=== PATIENT | female | born 1955 | race Caucasian/White ===

== ENCOUNTER 2022-07-10 11:02 | Inpatient (IN) | payer MEDICARE, SELFPAY ==
[2022-07-10] VITALS (10 sets, daily range): BP systolic 99–146; BP diastolic 66–108; PULSE 76–81; RESP 16–18; TEMP 36.7–37.3; O2SAT 92–96; BMI 26.6; BMI 26.3
--- NOTE | 2022-07-10 11:14 | XR_ITS ---
FINAL REPORT CLINICAL HISTORY: fall FINDINGS: An AP view of the pelvis and a cross-table view of the left hip were obtained. There is no prior exam for comparison. There is an impacted subcapital left femoral neck fracture. There is no dislocation. 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 Soft tissues are within normal limits. IMPRESSION: Impacted subcapital left femoral neck fracture. Reviewed, Interpreted and Dictated by Araseli Lebron MD Transcribed by Alli Mathew Authenticated and . [facility]
--- NOTE | 2022-07-10 11:14 | XR_ITS ---
FINAL REPORT CLINICAL HISTORY: fall FINDINGS: A PA view of the chest and oblique views of the left ribs were obtained. There is no prior exam for comparison. The cardiac and mediastinal silhouettes are within normal limits. The lungs are underinflated but clear. There is no pneumothorax. Oblique views of the left ribs reveal irregularity of the anterolateral left 4th and 5th ribs. IMPRESSION: Irregularity of the anterolateral left 4th and 5th ribs. Nondisplaced fractures cannot be excluded. Reviewed, Interpreted and Dictated by Araseli Lebron MD Transcribed by Alli Mathew Authenticated and [facility]
--- NOTE | 2022-07-10 11:14 | XR_ITS ---
FINAL REPORT CLINICAL HISTORY: fall FINDINGS: Three views of the right knee were obtained. There is no acute fracture or dislocation. The joint spaces are intact. The soft tissues are unremarkable. IMPRESSION: No acute osseous abnormality. Reviewed, Interpreted and Dictated by Araseli Lebron MD Transcribed by Alli Mathew Authenticated and [facility]
--- NOTE | 2022-07-10 11:20 | PC.NURSE ---
pt transported to radiology via stretcher.
--- NOTE | 2022-07-10 11:22 | HMH.EDFALL ---
Discharge Plan Disposition Patient Disposition: Admitted As Inpatient Condition: Good Discharge ED Provider: Valentin Fernández HPI General Chief Complaint: Fall Stated Complaint: fall, R hip pain Time Seen by Provider: 07/10/22 11:22 Mode of Arrival: EMS Source of Information: Patient, EMS and Medical Record Limitations: No Limitations Description of Symptoms (Recalled from ER Triage Doc. by RN): pt states she was sleep walking this morning and fell on her L side, reports L rib pain and L hip pain as well as R knee pain, denies LOC, denies hitting her head History of Present Illness HPI Narrative: pt with episode of somnambulism and fell down 2 steps and has rib and hip pain denied loc or head or neck and no abd pain MD complaint: fall Onset (ago): hour(s) Fall from: down stairs (#) Fall witnessed: no Place fall occurred: home Loss of consciousness: none Prolonged down time: no Context: other (sleep-walking) Location of injury: chest Location of injury - extremities: Left: thigh Severity: moderate Associated symptoms (after fall): denies Related Data Home Medications Medication Instructions Recorded Confirmed bupropion HCl 300 mg 24 hr tablet, 30 mg PO DAILY mood 07/10/22 07/10/22 extended release citalopram 40 mg tablet 40 mg PO DAILY Depression 07/10/22 07/10/22 cyclobenzaprine 10 mg tablet 10 mg PO DAILY PRN Muscle spasms 07/10/22 07/10/22 furosemide 20 mg tablet 20 mg PO DAILY Fluid 07/10/22 07/10/22 gabapentin 600 mg tablet 1,200 mg PO TID Pain 07/10/22 07/10/22 hydrocodone 7.5 mg-acetaminophen 1 tab PO TID PRN Pain 07/10/22 07/10/22 325 mg tablet meloxicam 15 mg tablet 15 mg PO DAILY inflammation 07/10/22 07/10/22 pantoprazole 40 mg tablet,delayed 40 mg PO BID stomach 07/10/22 07/10/22 release prochlorperazine maleate 10 mg 10 mg PO TID PRN Nausea And 07/10/22 07/10/22 tablet Vomiting propranolol 60 mg capsule,24 60 mg PO DAILY High blood pressure 07/10/22 07/10/22 hr,extended release ropinirole 3 mg tablet 3 mg PO HS Restless legs 07/10/22 07/10/22 valacyclovir 500 mg tablet 500 mg PO DAILY Infection 07/10/22 07/10/22 Allergies Allergy/AdvReac Type Severity Reaction Status Date / Time latex [LATEX] Allergy Intermediate I-RASH Verified 07/10/22 11:16 [facility] Disclaimer: The information contained in this section may have been updated after the patient was seen, as this information can be updated by other users. Social History Smoking Status: Never smoker alcohol intake: never current occupational status: retired Travel in the last 8 weeks: None ROS Obtained: Yes All systems reviewed & no additional complaints except as documented Physical Exam General General appearance: alert Head Head exam: normocephalic Eye Eye exam: Present PERRL and EOMI ENT ENT exam: Present normal oropharynx Neck Neck exam: Present full ROM and trachea midline; Absent tenderness Chest Chest inspection: Present tenderness and other (no sq air ) Respiratory Respiratory exam: Present other (dec bs bilat ); Absent respiratory distress Cardiovascular Cardiovascular exam: Present regular rate, systolic murmur and +S4 Abdominal Exam Abdominal exam: Present soft Extremities Exam Extremities exam: Absent calf tenderness Expanded Lower Extremity Exam Left: Hip/Pelvis exam: Present pelvis stable, pain on hip/pelvis palpation and hip pain on leg movement Neurovascular/Tendon exam: Absent pulse deficit Neurological Exam Neurological exam: Present alert, oriented X3 and CN II-XII intact; Absent motor sensory deficit Psychiatric Psychiatric exam: Present normal affect Skin Skin exam: Absent rash Medical Decision Making Medical Records Medical records reviewed: Yes I reviewed the patient's medical records. [place] Inquiry Pt receiving controlled substance: No Vital Signs: 07/10/22 11:02 07/10/22 12:00 07/10/22 12:30 Temperature 98.3 F Temperature Source Oral Pulse Rate
[2022-07-10 11:26] LABS: Basophils % 0.2 % (0.1-2.0); Eosinophils # 0.1 K/mm3 (0.0-0.4); Eosinophils % 1.3 % (0.1-12.0); Hematocrit 34.9 % (37.0-47.0); Hemoglobin 11.4 g/dL (12.2-16.2); Lymphocytes # 1.2 K/mm3 (0.7-4.5); Lymphocytes % 13.8 % (10-50); Mean Corpuscular HGB Conc 32.8 g/dL (31.8-35.4); Mean Corpuscular Volume 88.5 fl (81-99); Monocytes # 0.7 K/mm3 (0.1-1.0); Monocytes % 7.6 % (1.7-9.3); Neutrophils # 6.8 K/mm3 (1.8-7.8); Neutrophils % 77.1 % (37.0-80.0); Platelet Count 365 K/mm3 (142-424); Red Blood Count 3.94 M/mm3 (4.20-5.40); White Blood Count 8.8 K/mm3 (4.8-10.8)
[2022-07-10 11:32] LABS: Alanine Aminotransferase 20 U/L (12-78); Albumin Level 3.5 g/dl (3.5-5.0); Alkaline Phosphatase 147 U/L (38-126); Anion Gap 9.6 mEq/L (5-15); Aspartate Amino Transferase 38 U/L (14-36); Bilirubin,Total 1.5 mg/dl (0.2-1.3); Blood Urea Nitrogen 16 mg/dl (7-17); Calcium 8.2 mg/dl (8.4-10.2); Carbon Dioxide 25 mmol/L (22.0-30.0); Chloride 100 mmol/L (98-107); Creatinine Clearance Estimated 64 mL/min (50-200); Estimated Glomerular Filt Rate 56 ml/min (>60); GFR (African American) 67 ML/MIN (>60); Globulin 3.4 g/dL (1.3-3.2); Glucose 99 mg/dl (74-100); Potassium 3.6 mmoL/L (3.5-5.1); Sodium 131 mmol/L (136-145); Total Protein,Serum 6.9 g/dl (6.3-8.2)
--- NOTE | 2022-07-10 11:40 | PC.NURSE ---
pt returned from radiology.
[2022-07-10 12:11] LABS: Coronavirus 19, PCR Not Detected (NotDetected); Influenza A, PCR Not Detected (NotDetected); Influenza B, PCR Not Detected (NotDetected)
--- NOTE | 2022-07-10 12:37 | PC.NURSE ---
contacted radiology to check on status of xray results, states are reading xrays now, notified QIAN JAEGER
--- NOTE | 2022-07-10 13:13 | PC.NURSE ---
PRELIMINARY READING OF XRAYS GIVEN TO QIAN JAEGER AT THIS TIME.
--- NOTE | 2022-07-10 13:21 | ECG_ITS ---
APPROVED REPORT Exam: Resting ECG HR:77 bpm ECG Measurements Heart Rate 77 AXES TX 167 P -6 QRSd 100 QRS -5 QT 391 T -18 QTc 423 Conclusion SINUS RHYTHM WITH OCCASIONAL SUPRAVENTRICULAR PREMATURE COMPLEXES NONSPECIFIC T-WAVE ABNORMALITY BORDERLINE ECG UNCONFIRMED REPORT Electronically signed by : Hero Noble MD 07/11/2022 19:12:48
--- NOTE | 2022-07-10 13:52 | PC.NURSE ---
QIAN JAEGER SPEAKING WITH DR WILLS FOR ADMISSION
--- NOTE | 2022-07-10 13:56 | PC.NURSE ---
Case management called for admission
--- NOTE | 2022-07-10 14:21 | HMH.PHAINT1 ---
Pharmacy Intervention Comments: Home medication list verified via external fill history. -Mary Forrester, PharmD Candidate 2022
--- NOTE | 2022-07-10 14:37 | PC.NURSE ---
CALLED REPORT TO FELIPE GOYAL RN.
--- NOTE | 2022-07-10 16:11 | EXP.ORTH.CON ---
Documented by User: DAVIS Taylor 07/10/22 16:20 History of Present Illness *Admission Date: 07/10/22 *Reason for visit:: Left hip fracture *History of present illness: Amanda is a 66 year old female patient who is admitted to the acute inpatient service following a mechanical fall at home. She reports that around 4:00 AM this morning, she was sleepwalking and fell down the stairs, causing her to injure her left hip. She reports that she was unable to get up and ambulate so her sister called EMS and she was brought to the [facility] emergency department. Subsequent evaluation with x-ray demonstrates a left subcapital femur fracture. This afternoon the patient is lying comfortably in bed. She reports left hip pain as to be expected but states that it is well controlled with as needed pain medication and rest. No history of any distal tingling/numbness. At baseline she lives in her own home with her daughter in [place]; she is in [place] visiting her sister. She states that she most often ambulates with the use of a cane, but sometimes uses a walker for balance. Her past medical history is significant for chronic pain. She states that she has never been a smoker and is not diabetic; she denies any cardiac or pulmonary problems. She is not on any blood thinners. She denies any other symptoms or concerns at this time. [facility] Disclaimer: The information contained in this section may have been updated after the patient was seen, as this information can be updated by other users. Medical History (Updated 07/11/22 @ 00:32 by Angelito Rangel MD) Arthritis Chronic GERD Depression Surgical History History of gastric bypass Hx of neck surgery Previous back surgery Family History (Updated 07/10/22 @ 16:48 by Laverne Zhang RN) Other Family history of cancer Social History (Updated 07/10/22 @ 16:51 by Laverne Zhang RN) Smoking Status: Never smoker alcohol intake: never current occupational status: retired Travel in the last 8 weeks: None Meds Home Medications and Allergies Home Medications Medication Instructions Recorded Confirmed Type bupropion HCl 300 mg 24 hr tablet, 300 mg PO DAILY mood 07/10/22 07/11/22 History extended release citalopram 40 mg tablet 40 mg PO DAILY Depression 07/10/22 07/10/22 History cyclobenzaprine 10 mg tablet 10 mg PO DAILY PRN Muscle spasms 07/10/22 07/10/22 History furosemide 20 mg tablet 20 mg PO DAILY Fluid 07/10/22 07/10/22 History gabapentin 600 mg tablet 1,200 mg PO TID Pain 07/10/22 07/10/22 History hydrocodone 7.5 mg-acetaminophen 1 tab PO TID PRN Pain 07/10/22 07/10/22 History 325 mg tablet meloxicam 15 mg tablet 15 mg PO DAILY inflammation 07/10/22 07/10/22 History pantoprazole 40 mg tablet,delayed 40 mg PO BID stomach 07/10/22 07/10/22 History release prochlorperazine maleate 10 mg 10 mg PO TID PRN Nausea And 07/10/22 07/10/22 History tablet Vomiting propranolol 60 mg capsule,24 60 mg PO DAILY High blood pressure 07/10/22 07/10/22 History hr,extended release ropinirole 3 mg tablet 3 mg PO HS Restless legs 07/10/22 07/10/22 History valacyclovir 500 mg tablet 500 mg PO DAILY Infection 07/10/22 07/10/22 History New Prescriptions to Start Prescriptions: Allergies Allergy/AdvReac Type Severity Reaction Status Date / Time latex [LATEX] Allergy Intermediate I-RASH Verified 07/10/22 11:16 Ortho Exam (Inpt) Vital signs and Labs for Last 24 Hours: Temp Pulse Resp BP Pulse Ox 98.3 F 80 18 146/108 H 93 L 07/10/22 15:29 07/10/22 14:38 07/10/22 15:29 07/10/22 15:29 07/10/22 15:29 Laboratory Results - last 24 hr 07/10/22 11:12: WBC 8.8, RBC 3.94 L, Hgb 11.4 L, Hct 34.9 L, MCV 88.5, MCH 29.0, MCHC 32.8, RDW 17.0, Plt Count 365, MPV 8.0, Neut % (Auto) 77.1, Lymph % (Auto) 13.8, [place] % (Auto) 7.6, Eos % (Auto) 1.3, Baso % (Auto) 0.2, Neut # (Auto) 6.8, Lymph #
--- NOTE | 2022-07-10 16:20 | CT_ITS ---
PROCEDURE INFORMATION: Exam: CT Left Lower Extremity Without Contrast, Hip Exam date and time: 07/10/2022 5:24 PM Age: 66 years old Clinical indication: Injury or trauma; Fall; Blunt trauma; Hip; Left; Additional info: Left hip fracture TECHNIQUE: Imaging protocol: CT of the Left lower extremity without contrast was performed. Exam focused on the hip. 3D rendering (Not supervised by radiologist): MIP and/or 3D reconstructed images were created by the technologist. Radiation optimization: All CT scans at this facility use at least one of these dose optimization techniques: automated exposure control; mA and/or kV adjustment per patient size (includes targeted exams where dose is matched to clinical indication); or iterative reconstruction. COMPARISON: CR XR HIP LT 2-3V W/PELVIS 07/10/2022 11:15 AM FINDINGS: Bones/joints: Fusion hardware noted in the sacrum. There is redemonstration of acute, impacted subcapital femoral fracture. Soft tissues: Muscles are normal in bulk. IMPRESSION: Acute, impacted subcapital femoral fracture
--- NOTE | 2022-07-10 19:13 | EXP.HP ---
History of Present Illness *Admission Date: 07/10/22 *Reason for visit:: Left hip fracture/left hip pain *History of present illness: Ms. Echevarria is a pleasant 66 year old female patient who is admitted to the acute inpatient service following a mechanical fall at home. She reports that around 4:00 AM this morning, she was sleepwalking and fell down the stairs, causing her to injure her left hip. She reports that she was unable to get up and ambulate so her sister called EMS and she was brought to the [facility] emergency department. Subsequent evaluation with x-ray demonstrates a left subcapital femur fracture. Admitted for orthopedics consult and repair of her left hip fracture. After arriving to the floor, she is lying comfortably in bed with her legs propped up on a pillow giving her relief of her pain. this afternoon the patient is lying comfortably in bed. She reports left hip pain as to be expected but states that it is well controlled with as needed pain medication and rest. No history of any distal tingling/numbness. At baseline she lives in her own home with her daughter in [place]; she is in [place] visiting her sister. She states that she most often ambulates with the use of a cane, but sometimes uses a walker for balance. Her past medical history is significant for chronic pain. She states that she has never been a smoker and is not diabetic; she denies any cardiac or pulmonary problems. She is not on any blood thinners. She denies any other symptoms or concerns at this time. [facility] Disclaimer: The information contained in this section may have been updated after the patient was seen, as this information can be updated by other users. Medical History (Updated 07/11/22 @ 00:32 by Angelito Rangel MD) Arthritis Chronic GERD Depression Surgical History History of gastric bypass Hx of neck surgery Previous back surgery Family History (Updated 07/10/22 @ 16:48 by Laverne Zhang RN) Family history of cancer Social History (Updated 07/10/22 @ 16:51 by Laverne Zhang RN) Smoking Status: Never smoker alcohol intake: never current occupational status: retired Travel in the last 8 weeks: None Review of Systems Review of Systems Review of systems (narrative): 14 point review of systems performed, pertinent positives and negatives as per HPI Meds Home Medications and Allergies Home Medications Medication Instructions Recorded Confirmed Type bupropion HCl 300 mg 24 hr tablet, 30 mg PO DAILY mood 07/10/22 07/10/22 History extended release citalopram 40 mg tablet 40 mg PO DAILY Depression 07/10/22 07/10/22 History cyclobenzaprine 10 mg tablet 10 mg PO DAILY PRN Muscle spasms 07/10/22 07/10/22 History furosemide 20 mg tablet 20 mg PO DAILY Fluid 07/10/22 07/10/22 History gabapentin 600 mg tablet 1,200 mg PO TID Pain 07/10/22 07/10/22 History hydrocodone 7.5 mg-acetaminophen 1 tab PO TID PRN Pain 07/10/22 07/10/22 History 325 mg tablet meloxicam 15 mg tablet 15 mg PO DAILY inflammation 07/10/22 07/10/22 History pantoprazole 40 mg tablet,delayed 40 mg PO BID stomach 07/10/22 07/10/22 History release prochlorperazine maleate 10 mg 10 mg PO TID PRN Nausea And 07/10/22 07/10/22 History tablet Vomiting propranolol 60 mg capsule,24 60 mg PO DAILY High blood pressure 07/10/22 07/10/22 History hr,extended release ropinirole 3 mg tablet 3 mg PO HS Restless legs 07/10/22 07/10/22 History valacyclovir 500 mg tablet 500 mg PO DAILY Infection 07/10/22 07/10/22 History New Prescriptions to Start Prescriptions: Allergies Allergy/AdvReac Type Severity Reaction Status Date / Time latex [LATEX] Allergy Intermediate I-RASH Verified 07/10/22 11:16 Exam Data for Last 24 hours Vital signs and Labs for Last 24 Hours: Temp Pulse Resp BP Pulse Ox 99.1 F 81 18 107/66 L 92 L 07/10/22 19:33 07/10/22 19:33
[2022-07-11] VITALS (16 sets, daily range): BP systolic 107–134; BP diastolic 50–85; PULSE 71–102; RESP 12–20; TEMP 36.3–43; O2SAT 92–100; BMI 28.6
[2022-07-11 06:44] LABS: Alanine Aminotransferase 17 U/L (12-78); Albumin Level 3.2 g/dl (3.5-5.0); Albumin/Globulin Ratio 1.1 (1.1-1.8); Alkaline Phosphatase 137 U/L (38-126); Anion Gap 8.4 mEq/L (5-15); Aspartate Amino Transferase 30 U/L (14-36); Bilirubin,Total 0.9 mg/dl (0.2-1.3); Blood Urea Nitrogen 12 mg/dl (7-17); Carbon Dioxide 25 mmol/L (22.0-30.0); Chloride 103 mmol/L (98-107); Creatinine Clearance Estimated 69 mL/min (50-200); Estimated Glomerular Filt Rate 63 ml/min (>60); GFR (African American) 76 ML/MIN (>60); Globulin 2.9 g/dL (1.3-3.2); Glucose 92 mg/dl (74-100); Magnesium 1.9 mg/dl (1.6-2.3); Potassium 3.4 mmoL/L (3.5-5.1); Sodium 133 mmol/L (136-145); Total Protein,Serum 6.1 g/dl (6.3-8.2)
[2022-07-11 06:53] LABS: Basophils % 0.6 % (0.1-2.0); Eosinophils # 0.5 K/mm3 (0.0-0.4); Eosinophils % 7.5 % (0.1-12.0); Hematocrit 33.8 % (37.0-47.0); Hemoglobin 11.1 g/dL (12.2-16.2); Lymphocytes # 1.8 K/mm3 (0.7-4.5); Lymphocytes % 27.4 % (10-50); Mean Corpuscular HGB Conc 32.8 g/dL (31.8-35.4); Mean Corpuscular Hemoglobin 28.8 pg (27.0-31.2); Mean Platelet Volume 7.8 fl (7.4-10.4); Monocytes # 0.6 K/mm3 (0.1-1.0); Neutrophils # 3.7 K/mm3 (1.8-7.8); Neutrophils % 55.5 % (37.0-80.0); Platelet Count 338 K/mm3 (142-424); Red Blood Count 3.85 M/mm3 (4.20-5.40); Red Cell Distribution Width 17.1 % (11.5-17.5); White Blood Count 6.6 K/mm3 (4.8-10.8)
--- NOTE | 2022-07-11 07:19 | PC.NURSE ---
Pt has c/o pain in left leg 3x t/o shift. PRN [place] administered per AUG. Pt states favorable results. Call light within reach.
--- NOTE | 2022-07-11 09:59 | EXP.ORTH.PN ---
Subjective *Date: 07/11/22 *Time: 08:40 Interval history: Amanda is a 66-year-old female patient admitted to the acute inpatient service with left subcapital femur fracture. This morning the patient is lying comfortably in bed. She reports left hip pain as to be expected but states it is well controlled with as needed pain medication and rest. She reports that she was able to sleep last night. She has not had anything to eat or drink since yesterday evening in anticipation of surgery today. She denies any other symptoms or concerns at this time. Ortho Exam (Inpt) Vital signs and Labs for Last 24 Hours: Temp Pulse Resp BP Pulse Ox 98.6 F 78 18 130/85 96 07/11/22 07:39 07/11/22 04:00 07/11/22 07:39 07/11/22 07:39 07/11/22 07:39 Laboratory Results - last 24 hr 07/10/22 11:12: WBC 8.8, RBC 3.94 L, Hgb 11.4 L, Hct 34.9 L, MCV 88.5, MCH 29.0, MCHC 32.8, RDW 17.0, Plt Count 365, MPV 8.0, Neut % (Auto) 77.1, Lymph % (Auto) 13.8, [place] % (Auto) 7.6, Eos % (Auto) 1.3, Baso % (Auto) 0.2, Neut # (Auto) 6.8, Lymph # (Auto) 1.2, [place] # (Auto) 0.7, Eos # (Auto) 0.1, Baso # (Auto) 0.0 07/10/22 11:12: Sodium 131 L, Potassium 3.6, Chloride 100, Carbon Dioxide 25, Anion Gap 9.6, BUN 16, Creatinine 1.00, Estimated Creat Clear 64, Estimated GFR 56 L, Est GFR ( Amer) 67, Glucose 99, Calcium 8.2 L, Total Bilirubin 1.5 H, AST 38 H, ALT 20, Alkaline Phosphatase 147 H, Total Protein 6.9, Albumin 3.5, Globulin 3.4 H, Albumin/Globulin Ratio 1.0 L 07/10/22 12:02: SARS-CoV-2 (PCR) Not detected, Influenza A Untype (PCR) Not detected, Influenza Type B (PCR) Not detected 07/11/22 06:22: WBC 6.6, RBC 3.85 L, Hgb 11.1 L, Hct 33.8 L, MCV 88.0, MCH 28.8, MCHC 32.8, RDW 17.1, Plt Count 338, MPV 7.8, Neut % (Auto) 55.5, Lymph % (Auto) 27.4, [place] % (Auto) 9.0, Eos % (Auto) 7.5, Baso % (Auto) 0.6, Neut # (Auto) 3.7, Lymph # (Auto) 1.8, [place] # (Auto) 0.6, Eos # (Auto) 0.5 H, Baso # (Auto) 0.0 07/11/22 06:22: Sodium 133 L, Potassium 3.4 L, Chloride 103, Carbon Dioxide 25, Anion Gap 8.4, BUN 12, Creatinine 0.90, Estimated Creat Clear 69, Estimated GFR 63, Est GFR ( Amer) 76, Glucose 92, Calcium 8.0 L, Magnesium 1.9, Total Bilirubin 0.9, AST 30, ALT 17, Alkaline Phosphatase 137 H, Total Protein 6.1 L, Albumin 3.2 L, Globulin 2.9, Albumin/Globulin Ratio 1.1 Temp Pulse Resp BP Pulse Ox 98.3 F 80 18 146/108 H 93 L 07/10/22 15:29 07/10/22 14:38 07/10/22 15:29 07/10/22 15:29 07/10/22 15:29 Laboratory Results - last 24 hr 07/10/22 11:12: WBC 8.8, RBC 3.94 L, Hgb 11.4 L, Hct 34.9 L, MCV 88.5, MCH 29.0, MCHC 32.8, RDW 17.0, Plt Count 365, MPV 8.0, Neut % (Auto) 77.1, Lymph % (Auto) 13.8, [place] % (Auto) 7.6, Eos % (Auto) 1.3, Baso % (Auto) 0.2, Neut # (Auto) 6.8, Lymph # (Auto) 1.2, [place] # (Auto) 0.7, Eos # (Auto) 0.1, Baso # (Auto) 0.0 07/10/22 11:12: Sodium 131 L, Potassium 3.6, Chloride 100, Carbon Dioxide 25, Anion Gap 9.6, BUN 16, Creatinine 1.00, Estimated Creat Clear 64, Estimated GFR 56 L, Est GFR ( Amer) 67, Glucose 99, Calcium 8.2 L, Total Bilirubin 1.5 H, AST 38 H, ALT 20, Alkaline Phosphatase 147 H, Total Protein 6.9, Albumin 3.5, Globulin 3.4 H, Albumin/Globulin Ratio 1.0 L 07/10/22 12:02: SARS-CoV-2 (PCR) Not detected, Influenza A Untype (PCR) Not detected, Influenza Type B (PCR) Not detected I & O for Labs for Last 24 Hours: Intake & Output 07/08/22 07/09/22 07/10/22 07/11/22 23:59 23:59 23:59 23:59 Intake Total 60 / 60 0 / 0 Output Total 1600 / 2000 700 / 700 Balance -1540 / -1940 -700 / -700 Weight 158 lb 3 oz 172 lb 2 oz Intake & Output 07/07/22 07/08/22 07/09/22 07/10/22 23:59 23:59 23:59 23:59 Output Total 1000 / 1000 Balance -1000 / -1000 Weight 158 lb 3 oz Constitutional: Present no acute distress and cooperative Head: Present normocephalic and atraumatic Eyes: Present as per HPI ENT: Present normal exam Neck: Present normal inspection, full ROM and trachea midline; Absent lymphadenopathy R
--- NOTE | 2022-07-11 10:16 | SW/DCPLANNER ---
Addendum entered by [facility] 07/13/22 09:15: The plan for this patient is to discharge home today w/ [facility]. Addendum entered by [facility] 07/12/22 12:56: [facility] stated that services for this patient will start Sunday07/14/22. Addendum entered by [facility] 07/12/22 12:48: [facility] can not start services till late next week. I have faxed patient information [facility]. Addendum entered by [facility] 07/12/22 10:20: PT/OT evaluated patient this AM and stated that patient could go SNF level of care or home with assistance and home health. Patient is adamant to return home to her sister's house in [place] w/ home health services. Patient may discharge home tomorrow. I will fax patient information/order to [facility] today to set up services for discharge. Original Note: This patient per Ortho will have surgery today for left hip fracture. Patient does reside in [place] but is here visiting her sister in [place]. Patient stated that she has been to SNF facility in the past but is NOT interested in returning SNF once stable for discharge from [facility]. Patient stated that she would prefer to return to her sister's house with home health services. I will follow up with patient once surgery and therapy evaluation is completed. Discharge date is unknown at this time.
--- NOTE | 2022-07-11 13:46 | EXP.PN ---
Subjective *Date: 07/11/22 *Time: 13:46 Interval history: Date of service July 11, 2022. I am accompanied by several members of the multidisciplinary team for evaluation of the patient. She reports no acute events since admission and describes adequate pain control. Nursing staff report that she remains afebrile with stable vital signs and saturating appropriately on room air. Her morning labs have been reviewed and discussed including a low magnesium and potassium. Plans are for operative correction per orthopedics. Exam Data for Last 24 hours Vital signs and Labs for Last 24 Hours: Temp Pulse Resp BP Pulse Ox 98.6 F 78 18 130/85 96 07/11/22 07:39 07/11/22 04:00 07/11/22 07:39 07/11/22 07:39 07/11/22 07:39 Laboratory Results - last 24 hr 07/11/22 06:22: WBC 6.6, RBC 3.85 L, Hgb 11.1 L, Hct 33.8 L, MCV 88.0, MCH 28.8, MCHC 32.8, RDW 17.1, Plt Count 338, MPV 7.8, Neut % (Auto) 55.5, Lymph % (Auto) 27.4, [place] % (Auto) 9.0, Eos % (Auto) 7.5, Baso % (Auto) 0.6, Neut # (Auto) 3.7, Lymph # (Auto) 1.8, [place] # (Auto) 0.6, Eos # (Auto) 0.5 H, Baso # (Auto) 0.0 07/11/22 06:22: Sodium 133 L, Potassium 3.4 L, Chloride 103, Carbon Dioxide 25, Anion Gap 8.4, BUN 12, Creatinine 0.90, Estimated Creat Clear 69, Estimated GFR 63, Est GFR ( Amer) 76, Glucose 92, Calcium 8.0 L, Magnesium 1.9, Total Bilirubin 0.9, AST 30, ALT 17, Alkaline Phosphatase 137 H, Total Protein 6.1 L, Albumin 3.2 L, Globulin 2.9, Albumin/Globulin Ratio 1.1 I & O for Last 24 hours: Intake & Output 07/08/22 07/09/22 07/10/22 07/11/22 23:59 23:59 23:59 23:59 Intake Total 60 / 60 1000 / 1000 Output Total 1600 / 2000 700 / 700 Balance -1540 / -1940 300 / 300 Weight 71.753 kg 78.075 kg Constitutional Constitutional: no acute distress *Routine HEENT Exam Head: Present normocephalic Eye: Present EOMI and PERRL ENT: Present mucous membranes moist *Routine Neck Exam Neck: Present supple; Absent lymphadenopathy *Routine Respiratory Exam Respiratory: Present CTA bilaterally *Routine Cardiovascular Exam Cardiovascular: Present RRR *Routine Abdominal Exam Abdominal: Present soft and normoactive bowel sounds; Absent tenderness *Routine Extremities Exam Extremities: Absent cyanosis, clubbing or edema Comments: Left lower extremity with tenderness to the outer hip area, range of motion not attempted. *Routine Skin Exam Skin: Present warm; Absent rash *Routine Neurological Exam Neurological: Present alert and oriented X3 Assessment and Plan *Assessment and plan (1) Closed left hip fracture: Status: Acute Category: Medical Code(s): S72.002A - Fracture of unspecified part of neck of left femur, initial encounter for closed fracture (2) Chronic pain: Status: Acute Category: Medical Code(s): G89.29 - Other chronic pain (3) Depression: Status: Acute Category: Medical Code(s): F32.A - Depression, unspecified (4) Chronic GERD: Status: Acute Category: Medical Code(s): K21.9 - Gastro-esophageal reflux disease without esophagitis Plan 66-year-old female from [place] who is in [place] visiting her sister who fell and broke her left hip. Orthopedics consulted for operative management. Problems addressed as follows: Left hip fracture Left hip pain Orthopedic consult noted Imaging of left hip noted Parenterally administered controlled substance for comfort care VTE prophylaxis N.p.o. for anticipated surgical procedure Chronic pain with neuropathy Routine nursing interaction Gabapentin therapy Opioid therapy Holding NSAID therapy Trending electrolytes and creatinine GERD Appropriate positioning during and after meals Aspiration precautions PPI therapy Depression Routine nursing interaction SSRI therapy Wellbutrin therapy VTE prophylaxis: SCD's Code Status: DNR/DNI The patient is hospitalized day 1 with above diagnoses complicated by her chronic op
--- NOTE | 2022-07-11 17:16 | PC.NURSE ---
PT IS RESTING IN BED. ALERT AND ORIENTED X4. MEDICATED PER MAR FOR DISCOMFORT. ASSISTED WITH REPOSITIONING IN BED. LUNG SOUNDS CLEAR. ABDOMEN SOFT/NON TENDER WITH ACTIVE BOWEL SOUNDS. WILL CONTINUE TO MONITOR.
--- NOTE | 2022-07-11 21:16 | XR_ITS ---
PROCEDURE INFORMATION: Exam: XR Left Hip Exam date and time: 07/11/2022 9:33 PM Age: 66 years old Clinical indication: Screening exam; Post op; Prior surgery; Surgery date: Post-operative (0-2 days); Additional info: Postop in pacu, ap / cross table TECHNIQUE: Imaging protocol: Radiologic exam of the Left hip. Views: 2 or 3 views hip with pelvis when performed. COMPARISON: CT HIP LT WO CON 07/10/2022 5:24 PM FINDINGS: Bones/joints: Left hip prosthesis appears normally aligned. Evidence of prior vertebroplasty and orthopedic hardware noted in the lower lumbar spine. No acute fracture evident. Soft tissues: Soft tissue gas about the left hip compatible with recent surgery. IMPRESSION: Normal-appearing left hip prosthesis. No unexpected postoperative changes.
--- NOTE | 2022-07-11 21:18 | EXP.OP.NOTE ---
Date of procedure: 07/11/22 Pre-op Diagnosis:: left femoral neck fracture Post-op Diagnosis:: same Procedure performed:: 20613: left cemented femoral neck fracture Surgeon:: José Miguel Michele JR, MD Sole Leveler(s):: Yokasta Monahan PA-C SENIOR ADMINISTRATIVE ASSOCIATE:: Talha Lay Anesthesia: spinal Estimated blood loss (mL): 200 Clinical Note:: 66-year-old female sustained a left femoral neck fracture as a result of a ground-level fall. X-ray and CT scan demonstrated valgus impacted femoral neck fracture with subtle retroversion. I had a discussion with her regarding further management and after discussion of risk, benefits, alternatives, she wished to proceed with left cemented hip hemiarthroplasty. She was amenable with the plan. We discussed the risk and benefits of surgery. Risks included but were not limited to pain, bleeding, infection, damage to adjacent structures, need for further surgery, wound healing complications, loss of limb, . Patient expressed verbal consent and written consent was obtained for the above procedure. Operative findings:: I noted a crack in the calcar after trial reduction and as such I applied a cable. Size 2 stem, standard offset, +0 bipolar head, [employer] Operative note:: Patient was identified in preoperative holding. Operative site was marked in indelible ink. History, physical, consent were reviewed and updated. Patient was surrendered to the anesthesia team, taken to the operative suite. Anesthesia was induced. Patient was then placed in the lateral decubitus position on a well-padded operative table. All bony prominences were padded and an axillary roll was placed. The operative extremity was prepped and draped in the usual sterile fashion. The operative team donned sterile gowns and gloves and a timeout was called. All in attendance agreed regarding the patient's identity, procedure, operative site. Weight-based dose of antibiotics was given prior to incision. A skin maker was then used to ino all bony prominences. Skin incision was then carried out extending from the greater trochanter in a curvilinear fashion posteriorly across the buttocks. I incised the skin with a scalpel, then using a Bovie dissected through tissues. The fascia tono was incised utilizing Metzenbaum scissors. This was taken down to the bursa, which was removed utilizing a rongeur. Utilizing a periosteal elevator as well as the sponge, the fat was then freed from the short external rotators of the left hip after these were placed and stretched. The sciatic nerve was protected. Bovie was used to remove the short external rotators from the greater trochanter, which revealed the joint capsule. His were tagged for later repair. The capsule was cleared and incised utilizing a T-shape incision. A fracture hematoma was noted upon entering the joint capsule as well as the femoral neck fracture. A cork screw was then used to remove the fractured femoral head, which was given to the hydrographical technical officer which was sized on the back table. All bony remnants were then removed from the acetabulum and surrounding soft tissue with a rongeur. Acetabulum was then inspected and found to be clear. Attention was then turned to the proximal femur where a cutting tunnel was used to ino the femur for the femoral neck cut. A sagittal saw was then used to make the femoral cut. Box osteotome was then used to remove the bone from proximal femur. A femoral neck elevator was utilized. Next, attention was turned to broaching. Initially, a small broach was placed, first making efforts to lateralize the broach then the femoral canal. Next, the trial components were inserted consisting of the above-mentioned component sizes. The hip was taken through range of motion and tested to adduction, internal and external rotations as well as with a shuck and a posterior directed force on a flexed hip. It was noted that these size were stable through the range of motion. Next, the trial components were
--- NOTE | 2022-07-11 21:33 | EXP.ANES.CKL ---
[facility] Disclaimer: The information contained in this section may have been updated after the patient was seen, as this information can be updated by other users. Medical History (Updated 07/11/22 @ 00:32 by Angelito Rangel MD) Arthritis Chronic GERD Depression Surgical History History of gastric bypass Hx of neck surgery Previous back surgery Family History (Updated 07/10/22 @ 16:48 by Laverne Zhang RN) Other Family history of cancer Social History (Updated 07/10/22 @ 16:51 by Laverne Zhang RN) Smoking Status: Never smoker alcohol intake: never substance use type: denies use current occupational status: retired Travel in the last 8 weeks: None [facility] Anesthesia Checklist Patient Identification Patient Identification: Arm Band Structural Data Admitted From: Home Planned Operative Procedure/s: Left Hip Hemiarthroplasty Consent for Planned Operative Procedure(s) Verified: Yes Verified Documents: Surgical Consent and History and Physical NPO Status Verified Time NPO: 13:00 (clear liquids) Additional verifications Anesthesia Reactions: No Airway Assessment C-Spine Mobility Assessed: Yes TMJ Mobility Assessed: Yes Dentition: Edentulous Neurological Assessment Level of Consciousness: Awake and Alert Anesthesia Plan Anesthesia Risk discussed: Yes Anesthesia Plan: Verified ASA Class: II Anesthesia Type: General
--- NOTE | 2022-07-11 21:34 | EXP.ANES.I ---
[facility] Anesthesia Record Part I Anesthesia Record I Intake, IV Amount: 1,400 Estimated blood loss (mL): 100 Urine output (mL): 500 Blood Pressure: 134/67 SaO2: 92 Pulse Rate: 95 Respiratory Rate: 16 Temperature: 97.7 F Patient is:: Drowsy and Stable Stable to PACU at:: 21:30
--- NOTE | 2022-07-11 22:04 | SUR.PHASEI ---
Report called to Sharon Singletary RN @ this time.
--- NOTE | 2022-07-11 22:10 | PC.NURSE ---
PT ARRIVED TO FLOOR FROM SURGERY AT THIS TIME
[2022-07-12] VITALS (14 sets, daily range): BP systolic 99–133; BP diastolic 62–78; PULSE 66–102; RESP 14–18; TEMP 36.5–37.2; O2SAT 90–99; BMI 28.7; BMI 28.6
--- NOTE | 2022-07-12 04:07 | PC.NURSE ---
Pt has been alert to person majority of time since arriving back to floor. Able to be reoriented easily and remains pleasant but becomes confused again quickly. Pt has c/o pain rating 10/10 to left hip. PRN pain medication administered. DSG to left hip CDI, abductor pillow in place. Bed alarm on for pt safety. Call light within reach.
[2022-07-12 06:07] LABS: Basophils % 0.2 % (0.1-2.0); Eosinophils % 0.3 % (0.1-12.0); Hematocrit 31.6 % (37.0-47.0); Hemoglobin 10.4 g/dL (12.2-16.2); Lymphocytes # 0.8 K/mm3 (0.7-4.5); Lymphocytes % 12.5 % (10-50); Mean Corpuscular HGB Conc 32.9 g/dL (31.8-35.4); Mean Corpuscular Hemoglobin 29.6 pg (27.0-31.2); Mean Corpuscular Volume 89.9 fl (81-99); Mean Platelet Volume 8.4 fl (7.4-10.4); Monocytes # 0.4 K/mm3 (0.1-1.0); Neutrophils # 4.9 K/mm3 (1.8-7.8); Platelet Count 349 K/mm3 (142-424); Red Blood Count 3.51 M/mm3 (4.20-5.40)
[2022-07-12 06:15] LABS: Chloride 110 mmol/L (98-107); Potassium 5.1 mmoL/L (3.5-5.1); Sodium 136 mmol/L (136-145)
[2022-07-12 06:18] LABS: Anion Gap 9.1 mEq/L (5-15); Blood Urea Nitrogen 10 mg/dl (7-17); Calcium 7.7 mg/dl (8.4-10.2); Carbon Dioxide 22 mmol/L (22.0-30.0); Creatinine Clearance Estimated 69 mL/min (50-200); Estimated Glomerular Filt Rate 72 ml/min (>60); GFR (African American) 87 ML/MIN (>60); Glucose 134 mg/dl (74-100); Magnesium 2.4 mg/dl (1.6-2.3)
--- NOTE | 2022-07-12 07:12 | EXP.ANES.II ---
[facility] Anesthesia Record Part II Anesthesia Record Part II Discharge Time: 22:04 Destination: Second Floor PACU nurse assessment reviewed?: Yes Patient Condition:: Good Anesthesia Complications:: None Swallowing reflex intact?: Yes Cyanosis?: No Blood Pressure: 113/69 Pulse Rate: 90 Temperature: 97.7 F Mental Status: Alert & Oriented Pain level:: 5 Nausea and/or vomitting:: None Intake, IV Amount: 0
--- NOTE | 2022-07-12 10:07 | HMH.PTEV ---
Physical Therapy Evaluation Rehab PT IP Evaluation Start: 07/11/22 21:15 Freq: ONCE Status: Active Protocol: Document 07/12/22 10:01 PHOPRAFUL (Rec: 07/12/22 10:07 PHORNE [id number]) Subjective/History History History 66 [facility]owf [facility] fall down steps while sleepwalking and suffering L hip fx. Now S/ P L hip MARSHALL with post hip precautions and WBAT. She reports she lives with daughter who works, 4 steps to enter the home, she is generally independent with all mobility prior to adm. Subjective Subjective Currently she has no c/o other than expected post-op soreness. Rehab PT IP Eval Objective Appearance Patient Behavior Appropriate Patient Orientation Person,Place,Time Difficulty following instructions none Speech Pattern Clear Ambulation Patient Able to Ambulate Yes Ambulation Observation IP General Gait Pattern Observation Antalgic Gait Ambulation Distance (feet) 30 Ambulation Assistive Device Rolling Walker Ambulation Ability Contact Guard/Hand Hold Balance Ability to Arise Able, uses arms to help Sitting Balance Steady, safe Standing Balance Steady, wide stance Dynamic Sitting Balance Ability Good Dynamic Standing Balance Ability Fair Transfers Bed Transfer Ability Contact Guard/Hand Hold Chair Transfer Ability Contact Guard/Hand Hold Sit to Stand Bed Transfer Ability Minimal x 1 (25% assist) Sit to Stand Chair Transfer Ability Minimal x 1 (25% assist) ROM All Extremities PT ROM Status WFL MMT All Extremities PT MMT WFL Abnormal MMT Grade L LE grossly 3/5 Rehab PT IP prob,goals,plan Problems Date of Evaluation: 07/12/22 PT IP Problems Bed Mobility,Transfers,Gait Rehab Potential Rehab Potential Good Equipment Needs Assistive Devices Rolling / Wheeled Walker Plan PT Intervention Plan Bed Mobility,Transfers,Gait, Therapeutic Exercise PT Plan Frequency BID Duration LOS Discharge Goals Bed Transfer Ability Supervision/Stand by Sit to Stand Chair Transfer Ability Contact Guard/Hand Hold Ambulation Assistive Device Rolling Walker Ambulation Distance (feet) 50 Discharge Plan PT Discharge Plan Pt is currently most appropriate for eitan
--- NOTE | 2022-07-12 10:08 | HMH.OTEV ---
OT Inpatient Evaluation Rehab OT IP Evaluation Start: 07/11/22 21:15 Freq: ONCE Status: Active Protocol: Document 07/12/22 09:58 DARYNJONA (Rec: 07/12/22 10:08 SAMM [id number]) Rehab OT IP Assessment Subjective History 66-year-old female sustained a left femoral neck fracture as a result of a ground-level fall. X-ray and CT scan demonstrated valgus impacted femoral neck fracture with subtle retroversion. I had a discussion with her regarding further management and after discussion of risk, benefits, alternatives, she wished to proceed with left cemented hip hemiarthroplasty. I can get up. Patient lives in 1 story home with 2 KIRILL with daughter and uses a RW to ambulate within home. Hx of falling at home. Dtr works manager maritime 4 10 hour shifts. Patient is at home alone. Subjective I can get up. Instructed Patient on proper hand and foot placement to complete bed mobility, transfers and safety awareness to manevuer throughout environment with usage of RW to increase independence with ADLs. Patient completed all tasks with Min A with usage of RW. No LOB noted. Objective Patient Orientation Person,Place,Name,Birthday, Year Upper Extremity Gross ROM WFL Bed Mobility bed mobility - supine/sit Assist Level Minimal x 1 (25% assist) Transfer Training Sit/Stand Transfer Assist Level Minimal x 1 (25% assist) Chair Transfer Ability Minimal x 1 (25% assist) Chair Transfer Technique Sit to/from Ambulatory Chair Transfer Assistive Devices Rolling Walker Rehab OT IP prob,goals,plan Problems Date of Evaluation: 07/12/22 OT IP Problems Bed Mobility,Transfers,Balance ,Self care,Safety Rehab Potential Rehab Potential Fair Equipment Needs Assistive Devices Rolling / Wheeled Walker Plan
--- NOTE | 2022-07-12 12:05 | PC.NURSE ---
Propranolol discontinued while inpatient per Dr. Pereira
--- NOTE | 2022-07-12 12:06 | EXP.PN ---
Subjective *Date: 07/12/22 *Time: 12:06 Interval history: Date of service July 12, 2022 The patient reports no acute events overnight. She reports adequate pain control. I am accompanied by several members of the multidisciplinary rounds team for her evaluation today. PT and OT are due to see her. She underwent her hip surgery yesterday. Case management is assisting with next site of care. Her morning labs have been reviewed and discussed and identify a stable hemoglobin and normal white blood cell count. Her electrolytes and kidney function are normal. Exam Data for Last 24 hours Vital signs and Labs for Last 24 Hours: Temp Pulse Resp BP Pulse Ox 98.3 F 66 17 105/70 L 94 L 07/12/22 10:53 07/12/22 10:53 07/12/22 10:53 07/12/22 10:53 07/12/22 10:53 Laboratory Results - last 24 hr 07/12/22 05:59: WBC 6.0, RBC 3.51 L, Hgb 10.4 L, Hct 31.6 L, MCV 89.9, MCH 29.6, MCHC 32.9, RDW 17.0, Plt Count 349, MPV 8.4, Neut % (Auto) 81.0 H, Lymph % (Auto) 12.5, [place] % (Auto) 6.0, Eos % (Auto) 0.3, Baso % (Auto) 0.2, Neut # (Auto) 4.9, Lymph # (Auto) 0.8, [place] # (Auto) 0.4, Eos # (Auto) 0.0, Baso # (Auto) 0.0 07/12/22 05:59: Sodium 136, Potassium 5.1 D, Chloride 110 H, Carbon Dioxide 22, Anion Gap 9.1, BUN 10, Creatinine 0.80, Estimated Creat Clear 69, Estimated GFR 72, Est GFR ( Amer) 87, Glucose 134 H D, Calcium 7.7 L, Magnesium 2.4 H D I & O for Last 24 hours: Intake & Output 07/09/22 07/10/22 07/11/22 07/12/22 23:59 23:59 23:59 23:59 Intake Total 60 / 60 3602 / 3602 0 / 0 Output Total 1600 / 2000 3400 / 3400 700 / 700 Balance -1540 / -1940 / -700 / -700 Weight 71.753 kg 78.075 kg 78 kg Constitutional Constitutional: no acute distress *Routine HEENT Exam Head: Present normocephalic Eye: Present EOMI and PERRL ENT: Present mucous membranes moist *Routine Neck Exam Neck: Present supple; Absent lymphadenopathy *Routine Respiratory Exam Respiratory: Present CTA bilaterally *Routine Cardiovascular Exam Cardiovascular: Present RRR *Routine Abdominal Exam Abdominal: Present soft and normoactive bowel sounds; Absent tenderness *Routine Extremities Exam Extremities: Absent cyanosis, clubbing or edema Comments: Left lower extremity with surgical dressing. Patient with orthopedic appliance between her legs and extremity secured *Routine Skin Exam Skin: Present warm; Absent rash *Routine Neurological Exam Neurological: Present alert, oriented X3, moving all extremities, vision grossly intact, hearing grossly intact and normal speech Routine Psychiatric Exam Psychiatric: Present normal affect, normal thought process, cooperative, good insight and good judgment Assessment and Plan *Assessment and plan (1) Closed left hip fracture: Status: Acute Category: Medical Code(s): S72.002A - Fracture of unspecified part of neck of left femur, initial encounter for closed fracture (2) Chronic pain: Status: Acute Category: Medical Code(s): G89.29 - Other chronic pain (3) Depression: Status: Acute Category: Medical Code(s): F32.A - Depression, unspecified (4) Chronic GERD: Status: Acute Category: Medical Code(s): K21.9 - Gastro-esophageal reflux disease without esophagitis Plan 66-year-old female from [place] who is in [place] visiting her sister who fell and broke her left hip. Orthopedics consulted with operative intervention 07/11/2022. Problems addressed as follows: Left hip fracture Left hip pain Orthopedic consult noted Imaging of left hip noted Operative intervention 07/11/2022 Parenterally administered controlled substance for comfort care VTE prophylaxis with factor Xa inhibitor therapy Chronic pain with neuropathy Routine nursing interaction Gabapentin therapy Opioid therapy Holding NSAID therapy Trending electrolytes and creatinine GERD Appropriate positioning during and after meals Aspiration precautions PPI
--- NOTE | 2022-07-12 15:53 | EXP.ORTH.PN ---
Subjective *Date: 07/12/22 *Time: 14:35 Interval history: Amanda is a 66-year-old female patient who underwent a left hip cemented hemiarthroplasty yesterday evening 07/11/[address] Michele. Today the patient is postop day #1. This afternoon the patient is lying comfortably in bed. She reports that she has ambulated several times today with the use of a walker that this is going well. She reports some left hip pain as to be expected but states that it is well controlled with as needed pain medication and rest. No history of any distal tingling/numbness, fevers, chills, or rigors. She reports that she is eating and drinking well and denies any episodes of nausea or vomiting. She denies any other symptoms or concerns at this time. Ortho Exam (Inpt) Vital signs and Labs for Last 24 Hours: Temp Pulse Resp BP Pulse Ox 98.9 F 78 18 99/62 L 90 L 07/12/22 14:46 07/12/22 14:46 07/12/22 14:46 07/12/22 14:46 07/12/22 14:46 Laboratory Results - last 24 hr 07/12/22 05:59: WBC 6.0, RBC 3.51 L, Hgb 10.4 L, Hct 31.6 L, MCV 89.9, MCH 29.6, MCHC 32.9, RDW 17.0, Plt Count 349, MPV 8.4, Neut % (Auto) 81.0 H, Lymph % (Auto) 12.5, [place] % (Auto) 6.0, Eos % (Auto) 0.3, Baso % (Auto) 0.2, Neut # (Auto) 4.9, Lymph # (Auto) 0.8, [place] # (Auto) 0.4, Eos # (Auto) 0.0, Baso # (Auto) 0.0 07/12/22 05:59: Sodium 136, Potassium 5.1 D, Chloride 110 H, Carbon Dioxide 22, Anion Gap 9.1, BUN 10, Creatinine 0.80, Estimated Creat Clear 69, Estimated GFR 72, Est GFR ( Amer) 87, Glucose 134 H D, Calcium 7.7 L, Magnesium 2.4 H D I & O for Labs for Last 24 Hours: Intake & Output 07/09/22 07/10/22 07/11/22 07/12/22 23:59 23:59 23:59 23:59 Intake Total 60 / 60 3602 / 3602 120 / 120 Output Total 1600 / 2000 3400 / 3400 700 / 700 Balance -1540 / -1940 -580 / -580 Weight 158 lb 3 oz 172 lb 2 oz 171 lb 15.369 oz Head: Present normocephalic and atraumatic Eyes: Present as per HPI ENT: Present normal exam Neck: Present normal inspection, full ROM and trachea midline; Absent lymphadenopathy Respiratory: Present normal respiratory effort, able to speak in complete sentences and symmetric chest movement; Absent accessory muscle use Cardiac: Present Reg Rate and Rhythm GI: Present soft; Absent tenderness Comment:: Upon examination the lower extremities: The limb lengths are grossly equal. Upon examination of the left hip: Dressings present are clean, dry, and intact. The left hip and proximal femur are somewhat tender to palpation. Attempted movements of the left hip are somewhat painful. Thigh and calf are soft and nontender; Homans' sign is negative. No clinical evidence of DVT noted. Posterior tibial pulse 1+; capillary refill is brisk. Sensation light touch is grossly intact throughout. Patient is actively mobilizing the foot, ankle, and toes. Diagnostic imaging: Postoperative x-ray performed at [facility] on 07/11/2022 reviewed along with radiologist report. X-ray of the left hip demonstrates a left hip hemiarthroplasty with orthopedic components in satisfactory alignment and fixation. No evidence of orthopedic complications noted. Radiologist report is as follows: FINDINGS: Bones/joints: Left hip prosthesis appears normally aligned. Evidence of prior vertebroplasty and orthopedic hardware noted in the lower lumbar spine. No acute fracture evident. Soft tissues: Soft tissue gas about the left hip compatible with recent surgery. IMPRESSION: Normal-appearing left hip prosthesis. No unexpected postoperative changes. Skin: Present intact, warm and normal turgor; Absent cyanosis, erythema, lesions or jaundice Neuro: Present Cranial Nerve 2-12 Intact, Motor Function Intact, Sensory Function Intact, alert, awake, oriented x 3, tone normal and moves all extremities; Absent Numbness or Tingling Assessment and Plan *Assessment and plan (1) Hi
--- NOTE | 2022-07-12 17:19 | PC.NURSE ---
IV fluid intake totals includes previous shift
--- NOTE | 2022-07-12 18:35 | PC.NURSE ---
Pt up to bathroom for void. Only small amount of urine went in the measurement device. There was a large amount of unmeasured urine in the toilet
--- NOTE | 2022-07-12 18:38 | PC.NURSE ---
Patient states pain is 8-10 throughout day but reports to providers that her pain is well controlled. Patient able to rest comfortably with relaxed muscles and no nonverbal indications of pain when not being repositioned. Discussed pain scale. Will require additional education
--- NOTE | 2022-07-12 19:08 | PC.NURSE ---
Patient alert and oriented. Left hip dressing dry and intact. Morphine and Oxy IR for pain. Minimal oral intake due to food complaints. Declined new trays. Up to BR with 2 and FWW for void. On room air. Plan is to discharge home with sister tomorrow.
[2022-07-13] VITALS: O2SAT 92
[2022-07-13 03:43] VITALS: BP 114/69; PULSE 99; RESP 18; TEMP 36.7; O2SAT 96
--- NOTE | 2022-07-13 05:35 | PC.NURSE ---
PATIENTS IV IS NON PATENT. DESIRES TO TAKE SHOWER BEFORE IV RESTARTED. RESTING IN BED. ABDUCTION PILLOW IN PLACE. REPORTS NUMBNESS AND TINGLING IN BOTH FEET BUT THIS IS CHRONIC PROBLEM. WIGGLES TOES. FOOT WARM AND PINP, + PEDAL PULSES. DRSG TO LEFT HIP/THIGH C/D/I. REQUIRES ALOT OF MEDICATION TO CONTROL ALEXANDER. LAST PAIN MED OXYCODONE 5 MG X 2 TABS FOR 10/10 PAIN .
[2022-07-13 07:05] VITALS: BP 125/57; PULSE 60; RESP 16; TEMP 37; O2SAT 95
[2022-07-13 07:14] VITALS: BP 92/66; PULSE 107; RESP 16; TEMP 36.7; O2SAT 93
--- NOTE | 2022-07-13 09:48 | EXP.ORTH.PN ---
Subjective *Date: 07/13/22 *Time: 08:45 Interval history: Amanda is a 66-year-old female patient who underwent a left hip cemented hemiarthroplasty on 07/11/[address] Michele. Today the patient is postop day #2. This morning the patient is lying comfortably in bed. She reports that she has ambulated with the use of a walker and that this is going well; this morning she was walking down the hallway with the assistance of physical therapy. She reports some left hip pain as to be expected but states that it is well controlled with as needed pain medication and rest. No history of any distal tingling/numbness, fevers, chills, or rigors. She denies any other symptoms or concerns at this time. Ortho Exam (Inpt) Vital signs and Labs for Last 24 Hours: Temp Pulse Resp BP Pulse Ox 98.0 F 107 H 16 92/66 L 93 L 07/13/22 07:14 07/13/22 07:14 07/13/22 07:14 07/13/22 07:14 07/13/22 07:14 I & O for Labs for Last 24 Hours: Intake & Output 07/10/22 07/11/22 07/12/22 07/13/22 23:59 23:59 23:59 23:59 Intake Total 60 / 60 3602 / 3602 1713 / 1713 1225 / 1225 Output Total 1600 / 2000 3400 / 3400 1100 / 1100 Balance -1540 / -1940 202 / 202 613 / 613 1225 / 1225 Weight 158 lb 3 oz 172 lb 2 oz 171 lb 15.369 oz Head: Present normocephalic and atraumatic Eyes: Present as per HPI ENT: Present normal exam Neck: Present normal inspection, full ROM and trachea midline; Absent lymphadenopathy Respiratory: Present normal respiratory effort, able to speak in complete sentences and symmetric chest movement; Absent accessory muscle use Cardiac: Present Reg Rate and Rhythm GI: Present soft; Absent tenderness Comment:: Upon examination the lower extremities: The limb lengths are grossly equal. Upon examination of the left hip: Out of the dressings, the surgical incision appears healthy and is healing well. No erythema, induration, purulence, or bleeding noted. There is a Dermabond Prineo skin closure system in place. The left hip and proximal femur are somewhat tender to palpation. Attempted movements of the left hip are somewhat painful. Thigh and calf are soft and nontender; Homans' sign is negative. No clinical evidence of DVT noted. Posterior tibial pulse 1+; capillary refill is brisk. Sensation light touch is grossly intact throughout. Patient is actively mobilizing the foot, ankle, and toes. Skin: Present intact, warm and normal turgor; Absent cyanosis, erythema, lesions or jaundice Neuro: Present Cranial Nerve 2-12 Intact, Motor Function Intact, Sensory Function Intact, alert, awake, oriented x 3, tone normal and moves all extremities; Absent Numbness or Tingling Assessment and Plan *Assessment and plan (1) Closed left hip fracture: Status: Acute Category: Medical Code(s): S72.002A - Fracture of unspecified part of neck of left femur, initial encounter for closed fracture (2) Hip fracture: Status: Acute Category: Medical Code(s): S72.009A - Fracture of unspecified part of neck of unspecified femur, initial encounter for closed fracture Plan I have discussed the clinical findings, diagnostic imaging, and progress with the patient. Overall she is doing well today from an orthopedic standpoint and may be discharged when medically appropriate. I have changed the surgical dressings and reapplied sterile bordered gauze dressings over the left hip; there is a Dermabond Prineo skin closure system in place and I have given the patient appropriate care instructions. Plan to continue PT/OT and standard precautions for posterior approach of the hip; patient may ambulate weightbearing as tolerated on the left lower extremity. Continue use of the abduction wedge when lying down/sleeping for 6 weeks postoperatively. Continue DVT prophylaxis with Xarelto 10 mg p.o. daily for 5 weeks postoperatively. Continue rest, ice, activity modification, and pain medication as needed. Case management team coordinatin
[2022-07-13 10:36] VITALS: BP 96/67; PULSE 77; RESP 18; TEMP 36.4; O2SAT 94
--- NOTE | 2022-07-13 10:44 | EXP.DC.SUM ---
General Admission date:: 07/10/22 Discharge date: 07/13/22 HPI HPI HPI: Ms. Echevarria is a pleasant 66 year old female patient who is admitted to the acute inpatient service following a mechanical fall at home. She reports that around 4:00 AM this morning, she was sleepwalking and fell down the stairs, causing her to injure her left hip. She reports that she was unable to get up and ambulate so her sister called EMS and she was brought to the [facility] emergency department. Subsequent evaluation with x-ray demonstrates a left subcapital femur fracture. Admitted for orthopedics consult and repair of her left hip fracture. After arriving to the floor, she is lying comfortably in bed with her legs propped up on a pillow giving her relief of her pain. The patient is lying comfortably in bed. She reports left hip pain as to be expected but states that it is well controlled with as needed pain medication and rest. No history of any distal tingling/numbness. At baseline she lives in her own home with her daughter in [place]; she is in [place] visiting her sister. She states that she most often ambulates with the use of a cane, but sometimes uses a walker for balance. Her past medical history is significant for chronic pain. She states that she has never been a smoker and is not diabetic; she denies any cardiac or pulmonary problems. She is not on any blood thinners. She denies any other symptoms or concerns at this time. Hospital Course Hospital Course Hospital Course: The patient is admitted to the medical floor with orthopedic consult. She is maintained on fall precautions with strict bedrest and pain management. Orthopedics recommends intraoperative management. On July 11, 2022 the patient undergoes left cemented femoral neck fracture repair. Postoperatively she does well and reports no dyspnea. Nursing staff reports stable vital signs and she remains afebrile. Postoperatively she is started on anticoagulation therapy for DVT/PE prophylaxis with factor Xa inhibitor therapy. She tolerates the medication with no adverse events. Physical therapy evaluated the patient and recommended transition to inpatient rehab but the patient declined. Case management was consulted for home with home health and PT/OT. The patient identified improvement and inquired about discharge home. The patient will be discharged home with home health for ongoing PT/OT evaluations. She should see her PCP in 1 week and orthopedics as scheduled. I spent 35 minutes in [id number] time with the patient and nursing staff concerning the discharge process. We discussed the admitting diagnoses and hospital course. We discussed identified improvement and the patient's desire to be discharged. We reviewed inpatient studies and imaging. The patient voiced understanding on the importance of follow-up with her primary care provider and engagement specialist(s). The patient plans to be compliant with the medication regimen prescribed and follow-up appointments. She understands that she can return to the emergency department with any sudden changes or concerns. Exam Data for Last 24 hours Vital signs and Labs for Last 24 Hours: Temp Pulse Resp BP Pulse Ox 98.0 F 107 H 16 92/66 L 93 L 07/13/22 07:14 07/13/22 07:14 07/13/22 07:14 07/13/22 07:14 07/13/22 07:14 I & O for Last 24 hours: Intake & Output 07/10/22 07/11/22 07/12/22 07/13/22 23:59 23:59 23:59 23:59 Intake Total 60 / 60 3602 / 3602 1713 / 1713 1225 / 1225 Output Total 1600 / 2000 3400 / 3400 1100 / 1100 0 / 0 Balance -1540 / -1940 202 / 202 613 / 613 1225 / 1225 Weight 71.753 kg 78.075 kg 78 kg Constitutional Constitutional: no acute distress *Routine HEENT Exam Head: Present normocephalic Eye: Present EOMI and PERRL ENT: Present mucous membranes moist *Routine Neck Exam Neck: Present supple; Absent lymphadenopathy *Routine Respiratory Exam Respiratory: Present CTA bilaterall
--- NOTE | 2022-07-13 11:50 | PC.NURSE ---
Patient states pain is 9/10 but is resting comfortably in bed with no nonverbal indications of pain
--- NOTE | 2022-07-13 12:21 | P.CONPHA_ITS ---
Pharmacy Intervention Comments: Met with patient at bedside to debt management counselor on discharge medications prior to discharge. Overviewed new and continued medications, including indications, possible adverse effects, and mitigation strategies for each. Instructed patient to stop discontinued medications. Patient inquired as to why these medications were stopped. This student answered appropriately and patient seemed accepting. Patient verbalized understanding of information provided and had no further questions or concerns at this time. -Mary Forrester, PharmD Candidate 2022
--- NOTE | 2022-07-13 13:05 | CARE MANAGER ---
Patient requests walker and bedside commode, she would like to utilize [facility]. Order, demographics, and patient information faxed, they will bring walker to [facility].
--- NOTE | 2022-07-14 14:51 | CARE MANAGER ---
Called and spoke with patient regarding post discharge status. Patient stated that she is doing well, but is having a lot of pain. She is here in [place] visiting her sister and stated that she did not bring her PRN pain medication with her. She had no pain medication prescribed at discharge, so Dr. Pereira sent in a prescription to her pharmacy. No other concerns at time of phone call.
== END 2022-07-13 13:17 | disposition home health service (06) | DRG 522 ==
LOC: ER 11:58 → 2ND 14:07
PROVIDERS: Orthopaedic Surgery; Admitting Provider Internal Medicine Adolescent Medicine; Emergency Provider Emergency Medicine; PCP Family Medicine; Visit Provider Family Medicine
PROC: 0SRB0J9 Replacement of Left Hip Joint with Synthetic Substitute, Cemented, Open Approach (ICD-10-PCS; principal; 2022-07-11 19:45)
DX: S72.012A Unspecified intracapsular fracture of left femur, initial encounter for closed fracture (principal); W10.8XXA Fall (on) (from) other stairs and steps, initial encounter; Y92.018 Other place in single-family (private) house as the place of occurrence of the external cause; Z79.899 Other long term (current) drug therapy; K21.9 Gastro-esophageal reflux disease without esophagitis; G89.29 Other chronic pain; F32.A Depression, unspecified; G62.9 Polyneuropathy, unspecified
CPT/HCPCS: 27236; 36415; 71101; 73502; 73562; 73700; 80048; 80053; 83735; 85025; 93005; 97116; 97162; 97165; 97530; 99285; C1776; C9803; J2405; J2710; J3370; J3475; U0003; U0005

== ENCOUNTER → 2022-07-28 13:13 | Outpatient (CLI) | payer MEDICARE, SELFPAY ==
--- NOTE | 2022-07-28 13:17 | XR_ITS ---
FINAL REPORT CLINICAL HISTORY: s/p lt hip surgery COMPARISON: 07/11/2022 FINDINGS: Left hip Three views were obtained. There is no acute fracture or dislocation. There is postoperative change from left hip arthroplasty, stable from prior. No soft tissue abnormality is identified. IMPRESSION: Postsurgical changes, stable. Reviewed, Interpreted and Dictated by Gilmer Allen III, MD Transcribed by Sayda Corral Authenticated and [facility]
== END ==
PROVIDERS: Visit Provider Orthopaedic Surgery
DX: S72.002A Fracture of unspecified part of neck of left femur, initial encounter for closed fracture (principal)
CPT/HCPCS: 73502